=== PATIENT | female | born 1960 | race Caucasian/White ===

== ENCOUNTER 2016-08-01 10:00 | Emergency (ER) | payer OTHER ==
[2016-08-01] MEDS ORDERED: PANTOPRAZOLE SODIUM 40 MG in NORMAL SALINE 100 ML IV ONE (10:22)
[2016-08-01] MEDS ORDERED: NORMAL SALINE 1,000 ML IV ONE (10:22)
[2016-08-01] MEDS ORDERED: PROMETHAZINE HCL 12.5 MG in DEXTROSE 5 % IN WATER 50 ML IV ONE ×2 (10:23)
--- OUTSIDE RECORDS SUMMARY | 2016-08-01 10:33 | XMS REPORT | Continuity of Care Document ---
:1960 Author Organization [facility] ([facility]) Address [address] [place] [address] Phone [phone] Care Team Providers Name Role Phone Jason Dye Primary Care Provider [phone] Source Comments This disclosure is being made pursuant to the Care Everywhere program, applicable federal and state laws, and may not contain all informaitonavailable regarding this patient.[facility] ([facility]) Active Allergies and Adverse Reactions No Known Allergies Current Medications Prescription Sig. Disp. Refills Start Date End Date Status estrogens, Take 1 Tab by Active conjugated-medroxyPROGESTE mouth daily. Anmol (PREMPRO) 0.3-1.5 mg per tablet ASPIRIN/ACETAMINOPHEN/CAFF Take by mouth. Active EINE (EXCEDRIN MIGRAINE PO) Active Problems Not on file Social History Tobacco Use Types Packs/Day Years Used Date Former Smoker Quit: 11/05/2008 Alcohol Use Drinks/Week oz/Week Comments No Last Filed Vital Signs Vital Sign Reading Time Taken Blood Pressure 147/99 07/23/2010 3:20 PM CDT Pulse 101 07/23/2010 3:20 PM CDT Temperature 37 C (98.6 F) 07/23/2010 3:20 PM CDT Respiratory Rate 18 07/23/2010 3:20 PM CDT Height 1.702 m (5' 7") 07/23/2010 3:20 PM CDT Weight 86.183 kg (190 lb) 07/23/2010 3:20 PM CDT Body Mass Index 29.75 07/23/2010 3:20 PM CDT Oxygen Saturation 96% 07/23/2010 3:20 PM CDT Plan of Care Health Maintenance Due Date Last Done Comments HCV Screening 1960 Hepatitis B Vaccine (1 of 3 - Primary Series) 1960 Tdap Vaccine 1973 Lipid Disorder Screening 1980 MMR Vaccine 1980 Td Vaccine 1980 Cervical Cancer Screening 1992 Mammogram 2002 Colonoscopy 11/05/2012 Influenza Vaccine: Seasonal (#1) 2015 Results from Last 3 Months Not on file
[2016-08-01] MEDS ORDERED: PANTOPRAZOLE SODIUM 40 MG/100 ML PIGGYBACK IV ONE (10:36)
[2016-08-01 10:38] LABS: Hematocrit 32.3 % (37.0-47.0); Hemoglobin 9.9 gm/dL (12.5-16.0); Mean Cell Volume 79.4 fl (78-100); Mean Corpuscular Hemoglobin 24.3 pg (27-31); Mean Corpuscular Hgb Conc 30.7 g/dl (32-36); Mean Platelet Volume 9.9 fl (6.0-9.5); Neutrophil # 4.2 K/mm3 (1.3-6.0); Platelet Count 418 K/mm3 (150-450); Red Blood Count 4.07 M/mm3 (4.2-5.4); Red Cell Distribution Width 20.8 % (11.5-14.0); White Blood Count 6.7 K/mm3 (4.0-10.5)
[2016-08-01 10:53] LABS: BUN/Creatinine Ratio 15.3 (9.0-21.6); Bilirubin, Total 0.2 mg/dL (0.0-1.1); Calcium * 9.3 mg/dL (7.9-10.9); Potassium 3.5 mmol/L (3.4-4.6); Total Protein 7.6 gm/dL (6.2-8.2)
[2016-08-01 11:04] LABS: Carbon Dioxide 19.7 mmol/L (24-32.6)
[2016-08-01 11:05] LABS: Anion Gap 19.8 mmol/L (6.8-13.8)
[2016-08-01 11:20] LABS: Urine Bilirubin Negative (NEGATIVE); Urine Blood Negative /ul (NEGATIVE); Urine Ketone Negative (NEGATIVE); Urine Nitrite Negative (NEGATIVE); Urine Protein Negative (NEGATIVE); Urine Urobilinogen Normal (NORMAL); Urine pH 6.5 pH (5.0-7.0)
[2016-08-01 11:31] LABS: Urine Appearance Clear; Urine Bacteria None Seen; Urine Color Yellow; Urine RBC None Seen /hpf (0-5); Urine WBC TRACE /hpf (0-5)
[2016-08-01 12:00] VITALS: BP 150/97
--- NOTE | 2016-08-01 12:10 | ERNOTE ---
Abdominal HPI - Narrative Date of Service: 08/01/16 - General Chief Complaint: Abdominal Pain Time Seen by Provider: 08/01/16 10:13 Source: patient Exam Limitations: no limitations - Immun/Allergies/Home Medications Immunizatons: IMMUNIZATION HX Immunizations Up to Date Yes History of Influenza Vaccine No Hx Pneumococcal Vaccination No Allergies/Adverse Reactions: Allergies No Known Allergies Allergy (Verified 08/01/16 10:06) Home Medications: HOME MEDICATIONS Levothyroxine Sodium [Synthroid] 150 mcg PO DAILY 09/07/13 [Last Taken 09/07/13 06:00] Cetirizine HCl [Zyrtec] 10 mg PO DAILY 06/20/15 [Last Taken Unknown] Topiramate [Topamax] 50 mg PO BID 06/20/15 [Last Taken Unknown] Vitamin E 400 unit PO DAILY 06/26/15 [Last Taken Unknown] - History of Present Illness Narrative: Patient presents to the ED for vomiting. She relates she has been having 4 days of epigastric pain and acidic vomiting. She relates that she has had a total of a couple of tablespoons of streaked blood in the vomit. No gross blood or clots. She has Hx of ulcer and was concerned this had come back. No fever. No diarrhea. No black tarry stool or blood in the stool. She denies CP or SOB. No lightheadedness. Nothing seems to make this better or worse. She has not seen anyone else for this. Timing: constant Quality: moderate Activities at Onset: none Modifying Factors - (Improves): Present: other - notiing Modifying Factors - (Worsens): Present: other - nothing Associated Symptoms: Present: nausea, vomiting, other. Absent: chest pain, diarrhea-gross blood, diarrhea-mucous, fatigue, fever/chills, syncope, weakness Review of Systems - Review of Systems Constitutional: Absent: fever Respiratory: Present: no symptoms reported Cardiology: Present: no symptoms reported Gastrointestinal/Abdominal: Present: See HPI Genitourinary: Absent: dysuria Skin: Absent: rash - Patient's Past Medical History Patient History - Medical: Arthritis, GERD, Hypothyroidism, Migraines Patient History - Cardiac/Respiratory: No pertinent hx Patient History - Cancer: No Hx of Cancer Patient History - Surgical Procedures: No surgical history Patient History - Other: None - Social History Living Situations: home Abuse History: No History of abuse Psych History: No pertinent hx Alcohol Use: occasionally Drug Use: none - Immunizations Immunizations Up to Date: Yes Hx Pneumococcal Vaccination: No History of Influenza Vaccine: No Physical Exam - Physical Exam General Appearance: Present: alert, no apparent distress Eye Exam: Normal inspection: bilateral, PERRL: bilateral Ears, Nose, Throat: Present: normal ENT inspection Neck: Present: normal inspection Respiratory: Present: no respiratory distress, normal breath sounds, no accessory muscle use, lungs clear Cardiovascular/Chest: Present: regular rate, rhythm Gastrointestinal/Abdominal: Present: normal bowel sounds, nondistended, soft, other - Mild epigastric tenderness to dep palpation. No other tenderness. No guarding or rebound. No peritoneal signs. Non-surgical exam. Rectal Exam: Present: heme negative stool Extremity Exam: Present: normal inspection Neurological Exam: Present: alert, normal mood/affect, no motor/sensory deficits Skin Exam: Absent: skin rash ED Progress - Results and Orders Patient's Lab Results:: I have reviewed the patient's lab results. - Vital Signs Patient's Vital Signs:: I have reviewed the patient's vital signs. Vital Signs: Vital Signs 08/01/16 08/01/16 08/01/16 10:02 10:46 11:31 Temperature 36.3 C L 37.1 C Pulse Rate 78 61 55 L Respiratory 12 14 14 Rate Blood Pressure 141/94 143/89 137/79 O2 Sat by Pulse 98 97 98 Oximetry - Progress/Reassessment Chief Complaint: Abdominal Pain Progress Note-Subjective: 08/01/16 12:[address] Sanderson via phone. He will see the patient in the office at 1:30 today. I told the patient this and she was happy with this. I was going to keep her here and discharge her to the office appointment but she requested to leave to run home to feed a debilitated family member. She understnda that I felt she should stay here and go immediately from here to the surgeons office for the appointemnt but she wanted to run home quickly. She understands risks of this and declines staying here until the appointment. I discussed warning signs and reasons to return as well as the need for close f/u. Departure - Departure Clinical Impression: Vomiting Disposition: Home self-care Condition: Stable Instructions: Nausea, Adult Additional Instructions: You are to be seen at 1:[address] Sanderson. You may stay here in the ED until that appointment. Dr Sanderson will arrange further treatment. Return sooner for pain, vomiting, blood in stool or vomit, lightheadedness or if your condition worsens or changes in any way. Referrals: Reina Gomez MD [Primary Care Provider] -
== END 2016-08-01 12:04 | disposition home or self-care (01) ==
LOC: ER 10:00
DX: K92.0 Hematemesis (principal); R11.10 Vomiting, unspecified

== ENCOUNTER 2016-08-07 08:29 | Day surgery (SDC) | payer OTHER ==
[~2016-08-07 08:29] MED LIST: RINGERS SOLUTION,LACTATED 1,000 ML IV PRN
--- OUTSIDE RECORDS SUMMARY | 2016-08-07 08:32 | XMS REPORT | Continuity of Care Document ---
:1960 Author Organization [facility] ([facility]) Address [address] [place] [address] Phone [phone] Care Team Providers Name Role Phone Jason Dye Primary Care Provider [phone] Source Comments This disclosure is being made pursuant to the Care Everywhere program, applicable federal and state laws, and may not contain all informaitonavailable regarding this patient.[facility] ([facility]) Active Allergies and Adverse Reactions [...]
[2016-08-07] MEDS ORDERED: RINGERS SOLUTION,LACTATED 1,000 ML IV ONE (09:00)
[2016-08-07] MEDS ORDERED: RINGERS SOLUTION,LACTATED 1,000 ML IV PRN (09:48)
[2016-08-07] MEDS ORDERED: PANTOPRAZOLE SODIUM 40 MG in NORMAL SALINE 100 ML IV ONE (09:48)
[2016-08-07] MEDS ORDERED: SUCRALFATE 1 G TABLET PO SCH (10:00)
[2016-08-07] MEDS ORDERED: PANTOPRAZOLE SODIUM 40 MG/100 ML PIGGYBACK IV ONE (10:07)
[2016-08-07 10:52] VITALS: BP 131/89
--- NOTE | 2016-08-07 14:01 | OR ---
Operative Report - Dictated Report Narrative: Operative Report Date of operation 08/07/2016 Preoperative diagnosis: Anemia. GERD symptoms. Hematemesis Postoperative diagnosis: Gastric ulcers. Duodenal ulcers (pathology and CLOtest pending). Operation: EGD with biopsies Surgeon: Dr Sanderson Anesthesia: EUNICE VAUGHAN CRNA Indications for procedure: The patient is a 55-year-old female referred from [facility] where she presented with a history of GERD symptoms and vomiting blood. Hemoglobin was 9. She has had a previous EGD in June 2015 with superficial duodenal erosion. She had symptom relief with medication however this was discontinued and her symptoms recurred. She has been empirically restarted on sucralfate and Protonix, and she reports her symptoms are much better. Findings: 3 healing antral erosions. Duodenal ulcer and inflammation ( pathology and CLOtest pending). Narrative of procedure: The patient was identified preoperatively, and prior to the administration of anesthetic a multidisciplinary timeout was observed With the patient in the recumbent position, a bite-block was placed, intravenous sedation was administered, and the patient's eyes covered with a towel. The flexible fiberoptic gastroscope was advanced into the posterior pharynx which appeared normal. The supraglottic larynx appeared normal. The cords appeared normal, moved well, and opposed in the midline. The scope was advanced under direct vision into the proximal esophagus which appeared normal. The esophagus appeared freely distensible with normal mucosa. The esophageal mucosa appeared normal down to the gastroesophageal junction which was slightly irregular with mild inflammation. The GE junction appeared normally distensible. The scope was advanced into the stomach which was insufflated with air. There was madden gastritic erythema. There were 3 punctate ulcers with eschar in the antrum. The pylorus appeared patent. The scope was advanced into the duodenal bulb which appeared inflamed and friable. There was an ulcer with eschar in the second portion of the duodenum but no active bleeding. There was inflammation and denuding of the folds in the duodenum. The scope was advanced further to the horizontal portion of the duodenum which appeared normal, specifically the villous architecture appeared well preserved and clear bile was present. A sales representative advertising duodenal biopsy was obtained and submitted for pathology. The site appeared hemostatic. The scope was slowly withdrawn through the duodenal bulb with confirmation that a healing but not actively bleeding ulcer was present. A photograph could not be obtained due to patient motion. The scope was withdrawn into the stomach and sales representative advertising biopsies of gastric mucosa obtained for CLOtest and pathology. The biopsy sites were seen to be hemostatic. The insufflated air was removed from the stomach, the scope withdrawn from the patient, and the procedure terminated. The patient tolerated the anesthetic and procedure well without complication and was transferred back to the ambulatory surgery area awake and in stable condition. The patient remained stable throughout a period of postoperative observation, was able to tolerate by mouth intake, and was up without assistance. I shared the operative findings with her, and she was given copies of the photographs which appear in the medical record. She was given a single dose of Protonix 40 mg IV and sucralfate 1 g po prior to discharge. She was discharged home with instructions not to engage in hazardous activity today, but may return to normal activity tomorrow and advance diet as tolerated. She is to continue medications as listed in the history and physical exam. I made arrangements to contact the patient with biopsy reports and will make further recommendation based upon that result. Reviewed and electronically signed
== END 2016-08-07 08:30 | disposition home or self-care (01) ==
LOC: AMB 08:29
PROVIDERS: ATTEND Surgery
PROC: 0DB68ZX Excision of Stomach, Via Natural or Artificial Opening Endoscopic, Diagnostic (ICD-10-PCS; 2016-08-07)
PROC: 0DB98ZX Excision of Duodenum, Via Natural or Artificial Opening Endoscopic, Diagnostic (ICD-10-PCS; principal; 2016-08-07 09:45)
DX: K29.70 Gastritis, unspecified, without bleeding (principal); K25.9 Gastric ulcer, unspecified as acute or chronic, without hemorrhage or perforation; K26.9 Duodenal ulcer, unspecified as acute or chronic, without hemorrhage or perforation; D64.9 Anemia, unspecified; E03.9 Hypothyroidism, unspecified; Z87.891 Personal history of nicotine dependence; Z68.28 Body mass index [BMI] 28.0-28.9, adult